=== PATIENT | female | born 1990 | race American Indian/Alaskan Native ===

== ENCOUNTER 2020-09-29 16:14 | Emergency (ER) | payer BC, OTHER ==
[~2020-09-29] VITALS: Ht 167.6 cm; Wt 112.5 kg
[~2020-09-29 16:14] MED LIST: CALCIUM500 MG PO; CRUTCH1 EACH; TRAMADOL HCL50 MG PO; ZOFRAN4 MG PO
[2020-09-29] MEDS ORDERED: ZOLOFT50 MG PO (17:10)
[2020-09-29] MEDS ORDERED: VITAMIN D250 MCG PO (17:11)
[2020-09-29] MEDS ORDERED: IRON325 M1 PO (17:11)
[2020-09-29] MEDS ORDERED: MAGNESIUM100 MG PO (17:11)
[2020-09-29] MEDS ORDERED: HIGH POTENCY42.5 GM TOP (21:58)
[2020-09-29] MEDS ORDERED: ONDANSETRON ODT4 MG PO (21:58)
== END 2020-09-29 22:14 | disposition home or self-care (01) ==
LOC: ED 16:14
DX: R10.31 Right lower quadrant pain (principal); R11.2 Nausea with vomiting, unspecified; Z79.899 Other long term (current) drug therapy
CPT/HCPCS: 74177; 76705; 80053; 81001; 83690; 83735; 84703; 85025; 96375; 96376; 99284-25; J2270; J2405; J7030; Q9967

== ENCOUNTER 2020-12-16 10:47 | Emergency (ER) | payer BC, OTHER ==
[~2020-12-16] VITALS: Ht 167.6 cm; Wt 112.5 kg
[~2020-12-16 10:47] MED LIST changes: +HIGH POTENCY42.5 GM TOP; +IRON325 M1 PO; +MAGNESIUM100 MG PO; +ONDANSETRON ODT4 MG PO; +VITAMIN D250 MCG PO; +ZOLOFT50 MG PO
[2020-12-16] MEDS ORDERED: OMEPRAZOLE40 MG PO (14:05)
[2020-12-16] MEDS ORDERED: ONDANSETRON ODT8 MG PO (14:05)
[2020-12-16] MEDS ORDERED: HYDROCODON-ACE1 EA11 PO (14:05)
== END 2020-12-16 15:10 | disposition home or self-care (01) ==
LOC: ED 10:47
DX: K29.00 Acute gastritis without bleeding (principal); K80.20 Calculus of gallbladder without cholecystitis without obstruction; Z79.899 Other long term (current) drug therapy
CPT/HCPCS: 76705; 80053; 81001; 83690; 83735; 84703; 85025; 96374; 96375; 99284-25; C9113; J1170; J1200; J1790; J2405; J7030

== ENCOUNTER 2022-11-08 15:39 | Observation (INO) | payer BC, OTHER ==
[~2022-11-08] VITALS: Ht 167.6 cm; Wt 110.9 kg
[~2022-11-08 15:39] MED LIST changes: +HYDROCODON-ACE1 EA11 PO; +OMEPRAZOLE40 MG PO; +ONDANSETRON ODT8 MG PO
[2022-11-08 20:49] LABS: INFLUENZA B NAA NEGATIVE (NEGATIVE); RESPIRATORY SYNCYTIAL VIR NAA NEGATIVE (NEGATIVE)
[2022-11-08 20:52] LABS: BASOPHILS 0.8 % (0-2); EOSINOPHILS 0.3 % (0-6); HEMATOCRIT 46.9 % (35.0-50.0); HEMOGLOBIN 14.8 g/dL (12.0-18.0); LYMPHOCYTES 18.4 % (24-44); MCH 22.7 (27-36); MCHC 31.6 g/dl (30-36); MCV 71.9 fl (81-99); MONOCYTES 9.4 % (0-12); NEUTROPHILS 71.1 % (39-80); PLATELET COUNT 369 K/uL (140-440); RBC 6.52 M/ul (4.3-5.7); RDW 16.4 (10.5-15.0)
[2022-11-08 21:08] LABS: ALBUMIN/GLOBULIN RATIO 0.85 (1.1-2.4); ANION GAP 15.2 (7-21); BILIRUBIN, TOTAL 0.6 ng/dL (0.2-1.0); BUN/CREATININE RATIO 19.35 (6.0-28.6); CALCIUM 9.3 mg/dL (8.5-10.1); CREATININE, SERUM 0.93 mg/dL (0.55-1.02); POTASSIUM 3.2 mmol/L (3.5-5.1); PROTEIN, TOTAL 8.7 g/dL (6.4-8.2)
[2022-11-08 22:51] VITALS: BP 142/110
[2022-11-09] VITALS (8 sets, daily range): BP systolic 113–150; BP diastolic 81–98
[2022-11-09 00:24] LABS: BILIRUBIN, URINE POSITIVE (negative); BLOOD/HGB, URINE NEGATIVE (Negative); KETONE, URINE SMALL (Negative); LEUK ESTERASE, URINE TRACE (negative); NITRITE, URINE NEGATIVE (negative)
[2022-11-09 00:28] LABS: EPITHELIAL CELLS, URINE SQUAMOUS 2+ /lpf (0-1+)
[2022-11-09 00:29] LABS: CRYSTALS, URINE NONE SEEN (0-1+); WHITE BLOOD CELLS, URINE 21-40 /HPF (0-5)
[2022-11-09 00:30] LABS: BACTERIA, URINE 1+ /hpf (negative); CASTS, URINE NONE SEEN \\lpf; REFLEX CULTURE, URINE No (No)
[2022-11-09 05:17] LABS: RBC 5.44 M/ul (4.3-5.7)
[2022-11-09 05:19] LABS: BASOPHILS 0.5 % (0-2); EOSINOPHILS 0.6 % (0-6); HEMATOCRIT 38.9 % (35.0-50.0); HEMOGLOBIN 12.3 g/dL (12.0-18.0); MCH 22.6 (27-36); MCHC 31.6 g/dl (30-36); MCV 71.4 fl (81-99); MONOCYTES 10.1 % (0-12); NEUTROPHILS 67.8 % (39-80); PLATELET COUNT 290 K/uL (140-440); RDW 16.8 (10.5-15.0)
[2022-11-09 05:29] LABS: ALBUMIN 3.1 g/dL (3.4-5.0); ALBUMIN/GLOBULIN RATIO 0.84 (1.1-2.4); ANION GAP 17.1 (7-21); BILIRUBIN, TOTAL 0.5 ng/dL (0.2-1.0); BUN/CREATININE RATIO 23.52 (6.0-28.6); CALCIUM 8.3 mg/dL (8.5-10.1); CREATININE, SERUM 0.68 mg/dL (0.55-1.02); POTASSIUM 3.1 mmol/L (3.5-5.1); PROTEIN, TOTAL 6.8 g/dL (6.4-8.2)
--- NOTE | 2022-11-09 22:39 | HP ---
[facility] [address], [place] [address] Signed ADMISSION DATE: 11/09/2022 REASON FOR ADMISSION: Acute calculous cholecystitis. 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 She presented to the emergency room late last night, was evaluated by Dr. Oliveira. She was noted to have tenderness in right subcostal area. The patient had vomited at least seven times in the preceding 24 hours and had diarrhea in the last day as well. She has been unable to drink or eat for the past six days. Her evaluation included a gallbladder ultrasound, which showed a gallstone without evidence of acute cholecystitis and borderline dilation of the common bile duct at 7 mm. Her liver enzymes were actually normal. Alkaline phosphatase was 113. Her white count was elevated at 13.2. She has had electrolytes showing a potassium of 3.2 at admission of 3.1 this morning. PAST MEDICAL HISTORY: Negative for abdominal operations. There are no known drug allergies. She has had tonsillectomy in the past and is noted to have "right ankle fracture" for which she was prescribed an immobilizing boot. She does use alcohol 3 times a week and uses marijuana. SOCIAL HISTORY: She has never been . She lives with her parents, though she does work independently as described. REVIEW OF SYSTEMS: She denies any shortness of breath or chest pain. She has had no dysphagia or dysuria. Denies any hematemesis or blood per rectum. She has had diarrhea which seems to have abated since admission. PHYSICAL EXAMINATION: GENERAL: This is an obese Jordanian woman who looks to be nontoxic. VITAL SIGNS: Temperature is 97.8, pulse is 88, blood pressure 127/92, O2 saturations 98% on room air. HEENT: Trachea is midline. Mucous membranes are reasonably moist. CHEST: Clear. HEART: Regular without murmur. ABDOMEN: Obese, but soft. She has tenderness in the right subcostal and epigastric area. Electronically Signed By: CLOVIS CRYSTAL MD 11/09/22 2239 PATIENT NAME: JAYDE BIRD HISTORY AND PHYSICAL DATE OF : [birth year] REPORT #: [id number] PHYSICIAN: CLOVIS CRYSTAL MD PCP: [facility] REPORT IS CONFIDENTIAL AND NOT TO BE RELEASED WITHOUT AUTHORIZATION [facility] [address], [place] [address] Signed EXTREMITIES: Show no clubbing, cyanosis, or edema. LABORATORY STUDIES: Show white count of 11.3 this morning, previously 13.2, hematocrit 38.9, previously 46.9; platelets are 290,000. Chem profile showed a potassium of 3.1, previously 3.2. Bilirubin is normal at 0.5, lipase 124 at admission, beta HCG is negative. Serology shows negative COVID and other viral illnesses. The ultrasound obtained showed a large gallstone at the gallbladder neck without gallbladder wall thickening. No intrahepatic ductal dilatation. Kidney was normal. There was no ascites. ASSESSMENT: The patient has acute calculous cholecystitis, which has been ongoing for the past six days or so. I discussed with use of illustrations on the white board the pathophysiology of biliary disease and recommendation of treatment to include cholecystectomy. The risk of bleeding, infection, bile duct injury, need for open procedure (more or likely than not) were all reviewed in detail. We will initiate potassium resuscitation right away also. I have called to schedule the procedure. The activity therapy specialist wishes the potassium to be reversed to normal before operation, though I think it would be unlikely to be a problem otherwise. We will empirically add magnesium since she has had diarrhea and vomiting, which may have accounted for electrolyte disturbance to begin with. The risks of bleeding, infection, bile duct injury, need for open procedure, need for common duct exploration and so forth were all reviewed in detail with the patient. She understands and wished to proceed. MD ALLYN Clayton/MARINEL /[id number] cc: [facility] Dr. Oliveira Electronically Signed By: CLOVIS CRYSTAL MD 11/09/22 2239 PATIENT NAME: JAYDE BIRD HISTORY AND PHYSICAL DATE OF : [birth year] REPORT #: [id number] PHYSICIAN: CLOVIS CRYSTAL MD PCP: [facility] REPORT IS CONFIDENTIAL AND NOT TO BE RELEASED WITHOUT AUTHORIZATION [address] [address] Signed Copies: ~ Electronically Signed By: CLOVIS CRYSTAL MD 11/09/22 2239 PATIENT NAME: JADYE BIRD HISTORY AND PHYSICAL DATE OF : [birth year] REPORT #: [id number] PHYSICIAN: CLOVIS CRYSTAL MD PCP: [facility] REPORT IS CONFIDENTIAL AND NOT TO BE RELEASED WITHOUT AUTHORIZATION
--- NOTE | 2022-11-09 22:39 | OR ---
[facility] [address], [place] [address] Signed DATE OF OPERATION: 11/09/2022 SURGEON: Clovis Crystal MD PREOPERATIVE DIAGNOSES: 1. Obesity. 2. Acute calculous cholecystitis. POSTOPERATIVE DIAGNOSES: 1. Obesity. 2. Acute calculous cholecystitis. 3. Hepatic steatosis (fatty liver). PROCEDURES: 1. Laparoscopy with laparoscopic cholecystectomy with intraoperative cholangiogram. 2. Surgeon-directed fluoroscopy. ANESTHESIA: General endotracheal, Clovis Garcia CRNA and local 10 mL of 0.25% Marcaine with epinephrine. INDICATION: This morbidly obese 32-year-old Citizen [place] woman who has had pain in the upper abdomen for the past 6 days. She presented to the emergency room late last night and was evaluated by Dr. Oliveira. This included a gallbladder ultrasound, which showed a single large gallstone wedge in the infundibulum of the gallbladder. Fatty infiltration of the liver was noted as well. The patient is markedly obese. She was admitted to the hospital and given intravenous antibiotics, parenteral pain medication, IV fluids, and made n.p.o. She has now been resuscitated to the level that cholecystectomy for acute calculous cholecystitis could be undertaken. She understands risk of bleeding, infection, bile duct injury, and need for open procedure in relation to her problem and wishes to proceed. FINDINGS: The gallbladder is tense and distended. It is acutely inflamed. There is fatty infiltration of the liver. Cholecystectomy was ultimately performed and was challenging to secure good anatomy in the region of the cystic duct, but was accomplished ultimately Electronically Signed By: CLOVIS CRYSTAL MD 11/09/22 1245 PATIENT NAME: JAYDE BIRD OPERATIVE REPORT DATE OF : [birth year] REPORT #: [id number] PHYSICIAN: CLOVIS CRYSTAL MD PCP: [facility] REPORT IS CONFIDENTIAL AND NOT TO BE RELEASED WITHOUT AUTHORIZATION [facility] [address], [place] [address] Signed and cholangiogram performed showed no sign of filling defect, impediment of bile flow into the bile ducts, and complete resection was accomplished without complication. Notably, she had a smooth oblong 3 cm plus gallstone wedge within the infundibulum of the gallbladder. DESCRIPTION OF PROCEDURE: The patient was brought to the operating room, given a general endotracheal anesthetic. Preoperative antibiotic Ancef had been given. Sequential compression stockings used and heparin subcutaneously administered. The abdomen was prepared with a chlorhexidine solution and draped sterilely. An infraumbilical incision was made and using an open Susan cannula technique, pneumoperitoneum was achieved to a level of 14 mmHg of carbon dioxide gas. Intra-abdominal inspection showed no sign of ascites or carcinomatosis. The liver was fatty infiltrated and the gallbladder was obscured from view. Three additional trocars were placed in the usual configuration in the subxiphoid, right midclavicular, and right anterior axillary line. Gallbladder was elevated cephalad and found to be tensely distended and a bulky stone was noted and wedged in the infundibulum. With various manipulations, the gallbladder could be elevated more fully and using blunt electrocautery dissection, the triangle of Calot was dissected free. Ultimately, the cystic duct was identified as was the cystic arterial branch. Cystic arterial branch was doubly clipped and divided. Ultimately, a clip was applied across the gallbladder cystic duct junction once the triangle of Calot and critical view of safety fully obtained. A transverse choledochotomy was made in the cystic duct after securing the gallbladder cystic duct junction with a clip. Egress of clear bile was noted. Using the Desouza type cholangiocatheter, intraoperative cholangiography was undertaken after several attempts, ultimately showing good flow of contrast in biliary tree with prompt emptying into the duodenum and retrograde filling of the common hepatic duct. There is no sign of biliary anomaly filling defect or other problem. The catheter was removed and the cystic duct was triply clipped and divided. The gallbladder was then dissected free in retrograde fashion using electrocautery. The gallbladder was placed in an endobag and extracted through the infraumbilical port site. Stone within the gallbladder was smooth and round and was the only finding within the gallbladder. It was densely wedged into the infundibulum. There is no sign of neoplasm. The subhepatic space was irrigated. There was no sign of bile leak, bleeding, or other problems. Excess irrigation fluid was suctioned free. The trocars were removed under direct visualization showing no sign of bleeding. The fascial edges were reapproximated with interrupted 0 Vicryl suture. An additional running suture of 0 PDS suture was undertaken for additional security. A 10 mL of 0.25% Marcaine with epinephrine was injected locally. The skin was closed with interrupted 3-0 Vicryls. Steri-Strips were applied and the patient ultimately extubated and transferred to the recovery room in good condition. Blood loss was less than 20 mL in aggregate. Sponge, needle, and Electronically Signed By: CLOVIS CRYSTAL MD 11/09/22 2239 PATIENT NAME: JAYDE BIRD OPERATIVE REPORT DATE OF : [birth year] REPORT #: [id number] PHYSICIAN: CLOVIS CRYSTAL MD PCP: [facility] REPORT IS CONFIDENTIAL AND NOT TO BE RELEASED WITHOUT AUTHORIZATION [facility] [address] [place], [place] [address] Signed instrument counts were reported as correct x3. MD ALLYN Clayton/RADHA /[id number] cc: Copies: ~ Electronically Signed By: CLOVIS CRYSTAL MD 11/09/22 2239 PATIENT NAME: MARGEJAYDE OPERATIVE REPORT DATE OF : [birth year] REPORT #: [id number] PHYSICIAN: CLOVIS CRYSTAL MD PCP: [facility] REPORT IS CONFIDENTIAL AND NOT TO BE RELEASED WITHOUT AUTHORIZATION
[2022-11-10 01:14] VITALS: BP 118/87
[2022-11-10 05:50] VITALS: BP 118/83
[2022-11-10 09:28] VITALS: BP 129/84
[2022-11-10 13:27] VITALS: BP 140/79
[2022-11-10] MEDS ORDERED: ACETAMINOPHEN500 MG PO (14:42)
[2022-11-10] MEDS ORDERED: IBUPROFEN600 MG PO (14:42)
[2022-11-10] MEDS ORDERED: OXYCODON-ACETA1 EAC2 PO (14:42)
[2022-11-10 15:08] VITALS: BP 131/96
--- NOTE | 2022-11-15 12:23 | PATH ---
[facility] [address] [facility] [place], [place] [address] Signed SPECIMEN(S): A GALLBLADDER AND STONE SPECIMEN SOURCE: A. GALLBLADDER AND STONE CLINICAL HISTORY: Cholecystitis. FINAL PATHOLOGIC DIAGNOSIS: Gallbladder and stone: - Chronic calculous cholecystitis. JVR:reba MICROSCOPIC EXAMINATION: Histologic sections of all submitted blocks are examined by light microscopy. These findings, together with the gross examination, support the pathologic diagnosis. GROSS DESCRIPTION: The specimen, labeled and designated "Shayy, 1" and designated on the requisition "gallbladder and stone," is received in formalin and consists of Specimen: Disrupted gallbladder. Dimensions: 8.0 x 5.0 x 2.2 cm. Serosa: Yellow-love smooth. Cystic Duct: Unobstructed, margin inked black and shaved. Calculi: One yellow ovoid calculus (3.5 x 2.5 x 2.5 cm). Mucosa: Love-pink trabeculated. Wall thickness: 1.4 cm. Lymph node: No pericystic lymph nodes are grossly identified. Additional: None. Trial Attorney sections are submitted in (A1). AC (under the direct supervision of a pathologist) The Gross Description was prepared using a voice recognition system. The report was reviewed for accuracy; however, sound-alike word errors, addition and/or deletions may occur. If there is any question about this report, please contact Client Services. PERFORMING LABORATORY: Technical component was performed by [facility], [address] [place] [id number] (CLIA# [id number]). Professional interpretation was performed by [facility] PATIENT NAME: JAYDE BIRD PATHOLOGY DATE OF : [birth year] REPORT #: [id number] PHYSICIAN: [facility] PATHOLOGY PCP: [facility] REPORT IS CONFIDENTIAL AND NOT TO BE RELEASED WITHOUT AUTHORIZATION [facility] [address], [place] [address] [place] [address] (CLIA#: [id number]). Diagnostician: Ishmael Carrillo MD Pathologist Electronically Signed 11/15/2022 Copies: ~ PATIENT NAME: JAYDE BIRD PATHOLOGY DATE OF : [birth year] REPORT #: [id number] PHYSICIAN: [facility] PCP: [facility] REPORT IS CONFIDENTIAL AND NOT TO BE RELEASED WITHOUT AUTHORIZATION
--- NOTE | 2022-11-18 09:00 | DS ---
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 She has had a week of increasing abdominal pain including some diarrhea and epigastric and right subcostal pain. She presented to the emergency room night prior to admission, was evaluated by Dr. Oliveira, and noted to have tenderness in the right subcostal area. She had not only nausea, but diarrhea. Evaluation included a gallbladder ultrasound showing this gallstone without evidence of acute cholecystitis and borderline dilation of the common duct at 7 mm. Liver enzymes were normal. White count was elevated at 13.2. She was admitted at this time to undergo management of acute calculous cholecystitis. PERTINENT PHYSICAL EXAMINATION: GENERAL: Showed an obese white American woman who looked to be in mild discomfort. BMI is 39.5. Exam showed an obese American woman who did not look systemically toxic. VITAL SIGNS: Temperature is 97.8, blood pressure 127/92, pulse is 88, O2 saturation 98% on room air. ABDOMEN: Soft. She had tenderness in right subcostal and epigastric area. She had no clubbing, cyanosis, or edema. Beta HCG was negative. Lipase 124. Liver enzymes normal. Her presenting potassium was 3.1, previously 3.2. HOSPITAL COURSE: She was admitted, given fluid resuscitation, IV antibiotics and potassium repletion. On November 09, 2022, she underwent laparoscopic cholecystectomy with intraoperative cholangiogram. The operation was challenging on the basis of her obesity and extent of inflammation, but was accomplished safely. Cholangiogram was normal. Her postoperative course was rather unremarkable. She was begun on a regular diet postoperatively, which she tolerated well. At the time of discharge, she is ambulating well, tolerating a regular diet, has minimal incisional pain with oral analgesics and wounds are healing well. FOLLOWUP PLAN: She is return to see me in approximately four weeks. She will call on Monday to set up an appointment. She should lift no more than 20 pounds in the next two weeks and back to work release was noted for November 17 per her request. Electronically Signed By: CLOVIS CRYSTAL MD 11/18/22 0900 PATIENT NAME: JAYDE BIRD DISCHARGE SUMMARY DATE OF : [birth year] REPORT #: [id number] PHYSICIAN: CLOVIS CRYSTAL MD PCP: [facility] REPORT IS CONFIDENTIAL AND NOT TO BE RELEASED WITHOUT AUTHORIZATION [facility] [address], [place] [address] Signed DISCHARGE MEDICATIONS: Include, 1. Ibuprofen 600 mg p.o. q.6 hours p.r.n. pain. 2. Percocet 7.5/325, 1 to 2 p.o. q.6 hours p.r.n. pain. 3. Tylenol 500 mg 2 tablets p.o. q.6 hours p.r.n. pain, #30. She will continue sertraline, Zoloft 50 mg p.o. daily, and ferrous sulfate 325 mg p.o. daily. DISCHARGE DIAGNOSES: 1. Acute calculous cholecystitis. 2. Morbid obesity. 3. Status post laparoscopic cholecystectomy with intraoperative cholangiogram on November 09, 2022. Special instruction sheet; she should lift no more than 20 pounds for the next two weeks. She is permitted to shower. MD ALLYN Clayton/MARINEL /[id number] cc: Kev Faye MD [facility] Copies: KEV FAYE MD [facility] ~ Electronically Signed By: CLOVIS CRYSTAL MD 11/18/22 0900 PATIENT NAME: JAYDE BIRD DISCHARGE SUMMARY DATE OF : [birth year] REPORT #: [id number] PHYSICIAN: CLOVIS CRYSTAL MD PCP: [facility] REPORT IS CONFIDENTIAL AND NOT TO BE RELEASED WITHOUT AUTHORIZATION
== END 2022-11-10 16:20 | disposition home or self-care (01) ==
LOC: ED 15:39 → MS 15:41
PROVIDERS: Family Medicine; ADMIT Surgery; ATTEND Surgery
PROC: BF101ZZ Fluoroscopy of Bile Ducts using Low Osmolar Contrast (ICD-10-PCS; 2022-11-09)
PROC: 0FT44ZZ Resection of Gallbladder, Percutaneous Endoscopic Approach (ICD-10-PCS; principal; 2022-11-09 12:00)
DX: K80.12 Calculus of gallbladder with acute and chronic cholecystitis without obstruction (principal); K76.0 Fatty (change of) liver, not elsewhere classified; E66.01 Morbid (severe) obesity due to excess calories; Z68.39 Body mass index [BMI] 39.0-39.9, adult; Z79.899 Other long term (current) drug therapy; Z20.822 Contact with and (suspected) exposure to COVID-19
CPT/HCPCS: 00790; 36415; 74300; 76705; 80048; 80053; 81001; 83690; 84703; 85025; 85060; 87502; 96361; 96365; 96366; 96368; 96372; 96374; 96375; 96376; 99285-25; A9270; C9113; C9803; G0378; J0131; J0330; J0690; J1100; J1170; J1644; J1885; J2250; J2270; J2405; J2704; J2765; J3010; J3475; J3480; J3490; J7030; J7060; J7121; Q9967; U0002

== ENCOUNTER 2024-06-03 15:55 | Emergency (ER) | payer BC, OTHER ==
[~2024-06-03] VITALS: Ht 167.6 cm; Wt 102.0 kg
[~2024-06-03 15:55] MED LIST changes: +ACETAMINOPHEN500 MG PO; +IBUPROFEN600 MG PO; +OXYCODON-ACETA1 EAC2 PO
[2024-06-03] MEDS ORDERED: ondansetron HCL 4 MG/2 ML VIAL IV ONE ×2 (16:15→19:00)
[2024-06-03] MEDS ORDERED: NAPROXEN500 MG (16:16)
[2024-06-03 16:18] LABS: BASOPHILS 0.2 % (0-2); EOSINOPHILS 0.7 % (0-6); HEMATOCRIT 47.9 % (35.0-50.0); HEMOGLOBIN 15.8 g/dL (12.0-18.0); LYMPHOCYTES 5.3 % (24-44); MCH 26.4 (27-36); MCV 80.2 fl (81-99); MONOCYTES 4.2 % (0-12); NEUTROPHILS 89.6 % (39-80); PLATELET COUNT 242 K/uL (140-440); RBC 5.97 M/ul (4.3-5.7); RDW 15.8 (10.5-15.0)
[2024-06-03] MEDS ORDERED: SODIUM CHLORIDE 0.9% 1,000 ML IV ONE (16:30)
[2024-06-03 16:41] LABS: ALBUMIN/GLOBULIN RATIO 1.03 (1.1-2.4); ANION GAP 13.9 (7-21); BILIRUBIN, TOTAL 1.1 mg/dL (0.2-1.0); BUN/CREATININE RATIO 18.75 (6.0-28.6); CALCIUM 8.8 mg/dL (8.5-10.1); CREATININE, SERUM 0.64 mg/dL (0.55-1.02); POTASSIUM 3.9 mmol/L (3.5-5.1); PROTEIN, TOTAL 7.9 g/dL (6.4-8.2)
[2024-06-03] MEDS ORDERED: HYDROmorphone HCL 1 MG/ML SYR IV PRN (17:00)
[2024-06-03] MEDS ORDERED: ONDANSETRON 4 MG HOME.PACK SL ONE (19:00)
[2024-06-03] MEDS ORDERED: HYDROCODONE BIT/ACETAMINOPHEN 5/325 MG 1 TAB HOME.PACK PO ONE (19:00)
[2024-06-03 19:28] LABS: BILIRUBIN, URINE NEGATIVE (negative); BLOOD/HGB, URINE SMALL (Negative); KETONE, URINE SMALL (Negative); LEUK ESTERASE, URINE NEGATIVE (negative); NITRITE, URINE NEGATIVE (negative); PH, URINE 5.5 (5-7)
[2024-06-03 19:34] LABS: CRYSTALS, URINE NONE SEEN (0-1+); EPITHELIAL CELLS, URINE SQUAMOUS 3+ /lpf (0-1+)
[2024-06-03 19:35] LABS: BACTERIA, URINE RARE /hpf (negative); CASTS, URINE NONE SEEN \\lpf; COLLECTION TYPE, URINE CLEAN CATCH; REFLEX CULTURE, URINE No (No)
[2024-06-03 19:58] VITALS: BP 125/90
== END 2024-06-03 19:56 | disposition home or self-care (01) ==
LOC: ED 15:55
PROVIDERS: Emergency Medicine
DX: R10.10 Upper abdominal pain, unspecified (principal)
CPT/HCPCS: 36415; 74177; 80053; 81001; 83690; 84703; 85025; 96361; 96375; 96376; 99284-25; A9270; J1171; J2405; J7030; Q9967

== ENCOUNTER 2024-07-30 05:54 | Day surgery (SDC) | payer BC, OTHER ==
[~2024-07-30] VITALS: Ht 167.6 cm; Wt 100.0 kg
[~2024-07-30 05:54] MED LIST changes: +LACTATED RINGER'S 1,000 ML IV SCH; +NAPROXEN500 MG
[2024-07-30 06:08] VITALS: BP 122/80
[2024-07-30] MEDS ORDERED: LIDOCAINE 1% W/ EPI 1:100,000 20 ML MDV ONE (06:58)
[2024-07-30] MEDS ORDERED: IBLOOD GLUCOSE TEST STRIP 1 EA TEST VI PRN ×2 (07:00→08:00)
[2024-07-30] MEDS ORDERED: LIDOCAINE HCL 1% 5 ML SDV INJ ONE (07:00)
[2024-07-30] MEDS ORDERED: fentaNYL citrate 100 MCG/2 ML VIAL ONE (07:09)
[2024-07-30] MEDS ORDERED: ondansetron HCL 4 MG/2 ML VIAL ONE (07:09)
[2024-07-30] MEDS ORDERED: propofoL 200 MG/20 ML VIAL ONE ×4 (07:09→08:00)
[2024-07-30] MEDS ORDERED: ACETAMINOPHEN 1,000 MG/100 ML VIAL ONE (07:09)
[2024-07-30] MEDS ORDERED: KETOROLAC TROMETHAMINE 30 MG/ML VIAL ONE (07:09)
[2024-07-30] MEDS ORDERED: DEXAMETHASONE SOD PHOS 4 MG/ML VIAL ONE (07:09)
[2024-07-30] MEDS ORDERED: LIDOCAINE HCL 2% 5 ML SDV ONE (07:09)
[2024-07-30] MEDS ORDERED: MIDAZOLAM HCL 2 MG/2 ML VIAL ONE (07:13)
--- NOTE | 2024-07-30 07:35 | NUR ---
PT NOT AVAILABLE FOR VISIT. PROVIDED PRAYER.
[2024-07-30] MEDS ORDERED: droPERidol 5 MG/2 ML VIAL IV PRN (08:00)
[2024-07-30] MEDS ORDERED: PROCHLORPERAZINE EDISYLATE 10 MG/2 ML VIAL IV PRN (08:00)
[2024-07-30] MEDS ORDERED: NALOXONE HCL 0.4 MG SYR IV PRN (08:00)
[2024-07-30] MEDS ORDERED: fentaNYL citrate 50 MCG/ML SDV IV PRN (08:00)
[2024-07-30] MEDS ORDERED: ondansetron HCL 4 MG/2 ML VIAL IV PRN (08:00)
[2024-07-30] MEDS ORDERED: HYDROmorphone HCL 1 MG/ML SYR IV PRN (08:00)
--- NOTE | 2024-07-30 08:26 | NUR ---
07/30/24 0826 Scarlet Vanessa PATIENT REPORTS 6/10 PAIN. WHEN PAIN MEDICATION IS RETRIEVED, PATIENT DENIES PAIN. PATIENT ASKS FOR OXYGEN MASK TO BE REMOVED. OXYGEN MASK IS REMVOED.
[2024-07-30] MEDS ORDERED: IBUPROFEN 600 MG TAB PO ONE (08:45)
[2024-07-30 08:58] VITALS: BP 113/83
--- NOTE | 2024-07-30 17:15 | OR ---
[address] [address] Signed DATE OF OPERATION: 07/30/2024 SURGEON: Cihntan Eaton MD PREOPERATIVE DIAGNOSIS: EDIS-III of the cervix. POSTOPERATIVE DIAGNOSIS: EDIS-III of the cervix. PROCEDURE: Loop electrocautery excision procedure with top-hat and endocervical curettage. FINDINGS: Multiparous cervix with extensive aceto-white epithelium noted on colposcopy. ANESTHESIA: IV sedation plus local. ZOOLOGY PROFESSOR: None. IV FLUIDS: 700 mL crystalloid. ESTIMATED BLOOD LOSS: 10 mL. URINE OUTPUT: 75 mL clear urine. DRAINS: None. SPECIMENS: LEEP specimen, top-hat, endocervical curettage. COUNTS: Correct x2. Electronically Signed By: CHINTAN EATON MD 07/30/24 1715 PATIENT NAME: JAYDE BIRD OPERATIVE REPORT DATE OF : [birth year] REPORT #: [id number] PHYSICIAN: CHINTAN EATON MD PCP: [facility] REPORT IS CONFIDENTIAL AND NOT TO BE RELEASED WITHOUT AUTHORIZATION [address] [address] Signed COMPLICATIONS: None apparent. TECHNIQUE IN DETAIL: With informed consent and negative hCG, patient was taken to the operating room where she was given IV sedation. Her lower extremities were placed in SCD pneumatic compression devices for DVT prophylaxis. Lower extremities were then also placed in Yellowfin stirrups in the lithotomy position. She was prepped and draped in sterile fashion and time-out was performed per protocol. A speculum was placed. This was an insulated speculum. Cervix was visualized. She was given a paracervical block using 1% lidocaine with epinephrine. A total of 10 mL were injected into the cervix. Acetic acid was generously applied to the cervix. Colposcopy was performed to delineate the area of dysplasia. Using the loop electrode with a setting of 60 stokes, a specimen was removed. The specimen was removed in three parts due to the extent of her dysplasia as well as the size of her cervix. After the ectocervix had been removed, a top-hat was performed as there had been noted ECC positive on colposcopy. Once the top-hat was performed, we performed another ECC. All specimens were sent to Pathology. I then used the ball cautery to cauterize the ectocervical epithelium at the cut edge to ensure complete excision. We also then cauterized the bed of the cervix where the specimen had been removed. We had good hemostasis. We then applied Monsel's solution to the cervix. Good hemostasis noted again. Speculum removed at this time. DISPOSITION: The patient was taken to the recovery room in stable condition. MD WILMA Jimenez/MARINEL /[id number] Electronically Signed By: CHINTAN EATON MD 07/30/24 1715 PATIENT NAME: JAYDE BIRD OPERATIVE REPORT DATE OF : [birth year] REPORT #: [id number] PHYSICIAN: CHINTAN EATON MD PCP: [facility] REPORT IS CONFIDENTIAL AND NOT TO BE RELEASED WITHOUT AUTHORIZATION [address] [address] Signed Copies: ~ Electronically Signed By: CHINTAN EATON MD 07/30/24 1715 PATIENT NAME: JAYDE BIRD OPERATIVE REPORT DATE OF : [birth year] REPORT #: [id number] PHYSICIAN: CHINTAN EATON MD PCP: [facility] REPORT IS CONFIDENTIAL AND NOT TO BE RELEASED WITHOUT AUTHORIZATION
--- NOTE | 2024-08-02 14:21 | PATH ---
[facility] [address], [place] [address] Signed SPECIMEN(S): A LEEP SPECIMEN(S): B TOP HAT SPECIMEN(S): C ENDOCERVICAL CURETTINGS SPECIMEN SOURCE: A. LEEP B. TOP HAT C. ENDOCERVICAL CURETTINGS CLINICAL HISTORY: EDIS-3 with severe dysplasia FINAL PATHOLOGIC DIAGNOSIS: A. LEEP: - High grade squamous intraepithelial lesion (EDIS 2) focally extending to inked endocervical margins. - Ectocervical margins appear free of HGSIL on these sections. B. Top hat: - Benign endocervical mucosa, negative for dysplasia. C. Endocervical curettings: - Benign endocervical and lower uterine segment mucosa, negative for dysplasia. - Mucoinflammatory and hemorrhage debris. JVR:clv MICROSCOPIC EXAMINATION: Histologic sections of all submitted blocks are examined by light microscopy. These findings, together with the gross examination, support the pathologic diagnosis. GROSS DESCRIPTION: A. The specimen, labeled and designated "CELSO Lucas," is received in formalin and consists of three irregular shaped cervical tissue fragments that aggregate measure 5.5 x 3.3 x 0.8 cm. The ectocervix is pink-small, smooth. The resection margins are inked and specimen is serially sectioned. Entirely submitted in (A1-A6). B. The specimen, labeled and designated "Maricel Lucas," is received in formalin and consists of unoriented cervical os tissue fragment that measure 1.9 x 1.1 x 1.0 cm. The ectocervix is pink-small, smooth. The cervical canal opening is inked blue and resection margins are inked black. Specimen is serially sectioned and entirely submitted in PATIENT NAME: JAYDE LUCAS PATHOLOGY DATE OF : [birth year] REPORT #: [id number] PHYSICIAN: SCARLETT EDWARDS PCP: [facility] REPORT IS CONFIDENTIAL AND NOT TO BE RELEASED WITHOUT AUTHORIZATION [facility] [address], [place] [address] Signed (B1-B2). C. The specimen, labeled and designated "Shayy, endocervical curettings," is received in formalin and consists of 2.8 x 1.2 x 0.2 cm aggregate of conley mucoid material. The specimen is filtered into a mesh bag and entirely in (C1). JS (under the direct supervision of a pathologist) The Gross Description was prepared using a voice recognition system. The report was reviewed for accuracy; however, sound-alike word errors, addition and/or deletions may occur. If there is any question about this report, please contact Client Services. PERFORMING LABORATORY: Technical component was performed by [facility], [address] [place] [address] (CLIA# [id number]). Professional interpretation was performed by [facility], [address] [place] [address], [place] [address] (CLIA#: [id number]). Diagnostician: Ishmael Carrillo MD Pathologist Electronically Signed 08/02/2024 Copies: ~ PATIENT NAME: SHAYYJAYDE GLEASON PATHOLOGY DATE OF : [birth year] REPORT #: [id number] PHYSICIAN: [facility] PCP: [facility] REPORT IS CONFIDENTIAL AND NOT TO BE RELEASED WITHOUT AUTHORIZATION
== END 2024-07-30 09:00 | disposition home or self-care (01) ==
LOC: DS 05:54 → OPS 05:54 → DS 07:30 → OPS 09:00
PROVIDERS: ATTEND Obstetrics & Gynecology
PROC: 0UBC7ZZ Excision of Cervix, Via Natural or Artificial Opening (ICD-10-PCS; principal; 2024-07-30 07:30)
DX: D06.0 Carcinoma in situ of endocervix (principal); Z32.02 Encounter for pregnancy test, result negative; Z30.9 Encounter for contraceptive management, unspecified
CPT/HCPCS: 00940; 84703; 85025; A9270; J0131; J1100; J1885; J2003; J2250; J2405; J2704; J3010